=== PATIENT | male | born 1965 | race Caucasian/White ===

== ENCOUNTER 2018-10-13 02:02 | Emergency (ER) | payer MEDICAID ==
[~2018-10-13] VITALS: Ht 193 cm; Wt 160.0 kg
[~2018-10-13 02:02] MED LIST: ACID1TAB7 PO; AMOX1TAB64 PO; ATOR20TA37 PO; DOXY100C2 PO; EFAV1TAB PO; GABA300C10 PO; GLIP5TAB10 PO; HYDR1TAB16 PO; INSU100V12 SC; INSU100V8 SQ; LOPE2CAP PO; LOSA100T7 PO; METF10002 PO; SULF1TAB24 PO; TELM20TA PO
[2018-10-13 02:03] VITALS: BP 143/94
== END 2018-10-13 02:35 | disposition home or self-care (01) ==
LOC: ED 02:10
DX: L02.01 Cutaneous abscess of face (principal); I10 Essential (primary) hypertension; E11.9 Type 2 diabetes mellitus without complications; F17.210 Nicotine dependence, cigarettes, uncomplicated; Z21 Asymptomatic human immunodeficiency virus [HIV] infection status
CPT/HCPCS: 99283

== ENCOUNTER 2018-10-15 10:36 | Inpatient (IN) | payer MEDICAID ==
[~2018-10-15] VITALS: Ht 193 cm; Wt 172.1 kg
--- NOTE | 2018-10-15 10:59 | NUR ---
Patient safe in bed, [facility] at bedside for assessment, patient reports inability to take his pills r/t difficulty swallowing.
--- NOTE | 2018-10-15 11:18 | NUR ---
IV started lab draw and blood cx x1 drawn by this RN, lab at bedside now drawing lactic and 2nd blood cx.
[2018-10-15] MEDS ORDERED: ONDANSETRON 2MG/ML, 2ML ONE (11:25)
[2018-10-15] MEDS ORDERED: MORPHINE SULFATE 4 MG/ML, 1ML ONE (11:26)
[2018-10-15] MEDS ORDERED: ONDANSETRON 2MG/ML, 2ML IVPush ONE (11:30)
[2018-10-15] MEDS ORDERED: MORPHINE SULFATE 4 MG/ML, 1ML IVPush PRN (11:30)
[2018-10-15] MEDS ORDERED: SODIUM CHLORIDE FLUSH 10ML SYR IVF ONE (11:30)
[2018-10-15] MEDS ORDERED: AMPICILLIN/SULBACTAM 3 GM in SODIUM CHLORIDE 0.9% 100 ML IV ONE (11:30)
--- NOTE | 2018-10-15 11:41 | NUR ---
PATIENT MEDICATED PER MAR, CALL LIGHT IN REACH, BED RAILS UP, NO ADDITIONAL NEEDS AT THIS TIME.
[2018-10-15 11:47] LABS: BASOPHILS # (AUTO) 0.04 x10^3/uL (0-0.1); BASOPHILS % (AUTO) 0 % (0-1); EOSINOPHILS # (AUTO) 0.18 x10^3/uL (0-0.4); EOSINOPHILS % (AUTO) 2 % (1-7); LYMPHOCYTES # (AUTO) 1.78 x10^3/uL (1-3.4); LYMPHOCYTES % (AUTO) 15 % (22-44); MD NO; MEAN CORPUSCULAR HEMOGLOBIN 32.9 pg (27.5-34.5); MEAN CORPUSCULAR HGB CONC 34.5 g/dL (33.2-36.2); MEAN CORPUSCULAR VOLUME 95.5 fL (81-97); MEAN PLATELET VOLUME 8.4 fL (7.4-10.4); MONOCYTES # (AUTO) 0.76 x10^3/uL (0.2-0.8); MONOCYTES % (AUTO) 7 % (2-9); NEUTROPHILS # (AUTO) 8.77 x10^3/uL (1.8-6.8); NEUTROPHILS % (AUTO) 76 % (42-75); PLATELET COUNT 242 x10^3/uL (130-400); RED BLOOD COUNT 4.52 x10^6/uL (4.38-5.82); RED CELL DISTRIBUTION WIDTH 13.1 % (9.4-14.8)
[2018-10-15 11:58] LABS: ALBUMIN 3.2 g/dL (3.4-5.0); ANION GAP 8 mmol/L (5-15); CALCIUM 8.7 mg/dL (8.5-10.1); CHLORIDE 104 mmol/L (98-107); CREATININE 1.01 mg/dL (0.7-1.3)
[2018-10-15] MEDS ORDERED: ACET325T21 PO (12:00)
[2018-10-15] MEDS ORDERED: LAMO25TB7 PO (12:00)
[2018-10-15] MEDS ORDERED: PRAZ2CAP2 PO (12:00)
[2018-10-15] MEDS ORDERED: SULF1TAB24 PO (12:00)
[2018-10-15] MEDS ORDERED: CEPH-368 PO (12:00)
[2018-10-15] MEDS ORDERED: RISP2TAB3 PO (12:00)
--- NOTE | 2018-10-15 12:00 | NUR ---
TASK RN: PT RESTING ON GURNEY. NADN. OLIVAREZ.
--- NOTE | 2018-10-15 12:19 | NUR ---
TASK RN: PT TAKEN TO CT IN STABLE CONDITION.
[2018-10-15] MEDS ORDERED: OMNIPAQUE 350 MG/ML, 100ML BOTTLE ONE (12:45)
[2018-10-15] MEDS ORDERED: VANCOMYCIN PER PHARMACY MC ONE (13:00)
[2018-10-15] MEDS ORDERED: VANCOMYCIN 2,400 MG in SODIUM CHLORIDE 0.9% 500 ML IV ONE (13:00)
--- NOTE | 2018-10-15 13:26 | NUR ---
Report to floor RN, all questions answered, Vancomycin not arrived yet from pharmacy, will be sent up to tube [phone] if it arrives. Patient updated of transfer plan, RTG status now.
[2018-10-15 14:00] VITALS: BP 122/79
[2018-10-15] MEDS ORDERED: DOCUSATE 100 MG CAPSULE PO PRN (14:00)
[2018-10-15] MEDS ORDERED: ONDANSETRON 2MG/ML, 2ML IVPush PRN (14:00)
[2018-10-15] MEDS ORDERED: VANCOMYCIN PER PHARMACY MC PRN ×2 (14:00→15:00)
[2018-10-15] MEDS ORDERED: ZOLPIDEM 5MG TABLET PO PRN (14:00)
[2018-10-15] MEDS ORDERED: BISACODYL 10 MG SUPP PR PRN (14:00)
[2018-10-15] MEDS ORDERED: hydrALAzine 20 MG/ML, 1ML IVPush PRN (14:00)
[2018-10-15] MEDS ORDERED: LOPERAMIDE 2 MG CAPSULE PO PRN (14:00)
[2018-10-15] MEDS ORDERED: ONDANSETRON ODT 4 MG PO PRN (14:00)
[2018-10-15] MEDS ORDERED: ACETAMINOPHEN 325 MG TABLET PO PRN (14:00)
[2018-10-15] MEDS: HYDROcodone/APAP 5/325 TABLET PO PRN ×2 (14:51→23:11)
[2018-10-15 14:53] LABS: C-REACTIVE PROTEIN, QUANT 4.9 mg/dL (0.02-0.49); FREE T4 (FREE THYROXINE) 0.92 ng/dL (0.76-1.46); THYROID STIMULATING HORMONE 1.77 mIU/L (0.358-3.740)
[2018-10-15] MEDS: SODIUM CHLORIDE 0.9% 1,000 ML IV SCH (14:54)
[2018-10-15 15:03] LABS: HCT (SEDRATE) 43.2 % (39.2-51.8)
[2018-10-15] MEDS: GABAPENTIN 300 MG CAPSULE PO SCH ×2 (16:24→21:14)
[2018-10-15] MEDS: INSULIN LISPRO 100 UNITS/ML, PEN SQ-INSULIN SCH ×2 (17:50→21:18)
[2018-10-15] MEDS: ENOXAPARIN 40 MG/0.4 ML SQ SCH (19:27)
[2018-10-15] MEDS: AMPICILLIN/SULBACTAM 3 GM in SODIUM CHLORIDE 0.9% 100 ML IV SCH (19:27)
[2018-10-15 19:45] VITALS: BP 122/72
[2018-10-15] MEDS: INSULIN ASPART 70/30, VIAL SQ-INSULIN SCH (21:00)
[2018-10-15] MEDS: metFORMIN 500 MG TABLET PO SCH (21:14)
[2018-10-15] MEDS: LACTOBACILLUS CHEW TABLET PO SCH (21:14)
[2018-10-15] MEDS: EFAVIRENZ/EMTRICITAB/TENOFOVIR 600MG-200MG-300MG TABLET PO SCH (21:14)
[2018-10-15] MEDS: ATORVASTATIN 20 MG TABLET PO SCH (21:15)
[2018-10-15] MEDS: PRAZOSIN 2 MG CAPSULE PO SCH (21:15)
[2018-10-15] MEDS: FAMOTIDINE 20 MG TABLET PO SCH (21:15)
[2018-10-15] MEDS: RISPERIDONE 2 MG TABLET PO SCH (21:15)
[2018-10-16] MEDS: AMPICILLIN/SULBACTAM 3 GM in SODIUM CHLORIDE 0.9% 100 ML IV SCH ×4 (01:59→19:48)
[2018-10-16] MEDS: VANCOMYCIN 2,000 MG in SODIUM CHLORIDE 0.9% 500 ML IV SCH ×2 (03:04→14:49)
[2018-10-16 03:07] VITALS: BP 101/67
[2018-10-16 05:18] LABS: BASOPHILS # (AUTO) 0.06 x10^3/uL (0-0.1); BASOPHILS % (AUTO) 1 % (0-1); EOSINOPHILS % (AUTO) 2 % (1-7); LYMPHOCYTES # (AUTO) 2.15 x10^3/uL (1-3.4); LYMPHOCYTES % (AUTO) 21 % (22-44); MD NO; MEAN CORPUSCULAR HEMOGLOBIN 32.3 pg (27.5-34.5); MEAN CORPUSCULAR HGB CONC 33.9 g/dL (33.2-36.2); MEAN CORPUSCULAR VOLUME 95.3 fL (81-97); MEAN PLATELET VOLUME 8.4 fL (7.4-10.4); MONOCYTES # (AUTO) 0.76 x10^3/uL (0.2-0.8); MONOCYTES % (AUTO) 8 % (2-9); NEUTROPHILS # (AUTO) 7.02 x10^3/uL (1.8-6.8); NEUTROPHILS % (AUTO) 69 % (42-75); PLATELET COUNT 202 x10^3/uL (130-400); RED BLOOD COUNT 4.19 x10^6/uL (4.38-5.82); RED CELL DISTRIBUTION WIDTH 12.9 % (9.4-14.8)
[2018-10-16 05:22] LABS: ANION GAP 6 mmol/L (5-15); CHLORIDE 104 mmol/L (98-107)
[2018-10-16 05:27] LABS: CHOL/HDL RATIO 3.1; CHOLESTEROL, TOTAL 144 mg/dL (140-239); CREATININE 0.86 mg/dL (0.7-1.3); HDL CHOL % 33 % (26-37); HDL CHOLESTEROL (DIRECT) 47 mg/dL (40-60); LDL CHOLESTEROL,CALCULATED 61 mg/dL (54-169); LDL/HDL RATIO 1.3 (0.5-3.0); TRIGLYCERIDES 180 mg/dL (50-200); VLDL CHOLESTEROL 36 mg/dL (0-25)
[2018-10-16] MEDS: HYDROcodone/APAP 5/325 TABLET PO PRN ×4 (06:42→21:33)
[2018-10-16 06:50] VITALS: BP 119/73
[2018-10-16] MEDS: INSULIN LISPRO 100 UNITS/ML, PEN SQ-INSULIN SCH ×4 (08:02→20:54)
[2018-10-16] MEDS: FAMOTIDINE 20 MG TABLET PO SCH ×2 (08:03→20:57)
[2018-10-16] MEDS: LACTOBACILLUS CHEW TABLET PO SCH ×2 (08:03→20:57)
[2018-10-16] MEDS: LAMOTRIGINE 25 MG TABLET PO SCH (08:03)
[2018-10-16] MEDS: GABAPENTIN 300 MG CAPSULE PO SCH ×3 (08:03→20:58)
[2018-10-16] MEDS: metFORMIN 500 MG TABLET PO SCH ×2 (08:03→20:58)
[2018-10-16] MEDS: LOSARTAN 50MG TABLET PO SCH (08:03)
[2018-10-16] MEDS: EFAVIRENZ/EMTRICITAB/TENOFOVIR 600MG-200MG-300MG TABLET PO SCH ×2 (08:30→09:00)
[2018-10-16] MEDS: INSULIN ASPART 70/30, VIAL SQ-INSULIN SCH ×2 (09:00→20:56)
[2018-10-16 13:12] VITALS: BP 102/65
[2018-10-16 19:25] VITALS: BP 114/74
[2018-10-16] MEDS: ENOXAPARIN 40 MG/0.4 ML SQ SCH (19:31)
[2018-10-16] MEDS: PRAZOSIN 2 MG CAPSULE PO SCH (20:58)
[2018-10-16] MEDS: RISPERIDONE 2 MG TABLET PO SCH (20:58)
[2018-10-16] MEDS: ATORVASTATIN 20 MG TABLET PO SCH (20:58)
[2018-10-17] MEDS: AMPICILLIN/SULBACTAM 3 GM in SODIUM CHLORIDE 0.9% 100 ML IV SCH ×4 (00:56→19:27)
[2018-10-17] MEDS: SODIUM CHLORIDE 0.9% 1,000 ML IV SCH ×2 (00:57→21:24)
[2018-10-17 01:02] VITALS: BP 111/73
[2018-10-17 04:32] LABS: BASOPHILS # (AUTO) 0.04 x10^3/uL (0-0.1); BASOPHILS % (AUTO) 0 % (0-1); EOSINOPHILS # (AUTO) 0.24 x10^3/uL (0-0.4); EOSINOPHILS % (AUTO) 3 % (1-7); LYMPHOCYTES # (AUTO) 2.08 x10^3/uL (1-3.4); LYMPHOCYTES % (AUTO) 22 % (22-44); MD NO; MEAN CORPUSCULAR HEMOGLOBIN 32.8 pg (27.5-34.5); MEAN CORPUSCULAR HGB CONC 34.5 g/dL (33.2-36.2); MEAN CORPUSCULAR VOLUME 95.3 fL (81-97); MEAN PLATELET VOLUME 7.7 fL (7.4-10.4); MONOCYTES # (AUTO) 0.78 x10^3/uL (0.2-0.8); MONOCYTES % (AUTO) 8 % (2-9); NEUTROPHILS # (AUTO) 6.37 x10^3/uL (1.8-6.8); NEUTROPHILS % (AUTO) 67 % (42-75); PLATELET COUNT 228 x10^3/uL (130-400); RED BLOOD COUNT 4.28 x10^6/uL (4.38-5.82); RED CELL DISTRIBUTION WIDTH 12.6 % (9.4-14.8)
[2018-10-17 04:47] LABS: ANION GAP 5 mmol/L (5-15); CALCIUM 8.6 mg/dL (8.5-10.1); CHLORIDE 106 mmol/L (98-107)
[2018-10-17 04:50] LABS: CREATININE 0.98 mg/dL (0.7-1.3)
[2018-10-17 06:22] VITALS: BP 123/77
[2018-10-17] MEDS: INSULIN LISPRO 100 UNITS/ML, PEN SQ-INSULIN SCH ×4 (07:00→20:48)
[2018-10-17] MEDS: INSULIN ASPART 70/30, VIAL SQ-INSULIN SCH ×2 (09:00→21:00)
[2018-10-17] MEDS: EFAVIRENZ/EMTRICITAB/TENOFOVIR 600MG-200MG-300MG TABLET PO SCH (09:00)
[2018-10-17] MEDS: metFORMIN 500 MG TABLET PO SCH ×2 (10:13→21:14)
[2018-10-17] MEDS: FAMOTIDINE 20 MG TABLET PO SCH ×2 (10:13→21:14)
[2018-10-17] MEDS: LOSARTAN 50MG TABLET PO SCH (10:13)
[2018-10-17] MEDS: LAMOTRIGINE 25 MG TABLET PO SCH (10:13)
[2018-10-17] MEDS: GABAPENTIN 300 MG CAPSULE PO SCH ×3 (10:13→21:14)
[2018-10-17] MEDS: LACTOBACILLUS CHEW TABLET PO SCH ×2 (10:13→21:14)
[2018-10-17] MEDS: HYDROcodone/APAP 5/325 TABLET PO PRN ×3 (10:23→21:23)
[2018-10-17 13:33] VITALS: BP 114/71
[2018-10-17 18:59] VITALS: BP 125/79
[2018-10-17] MEDS: ENOXAPARIN 40 MG/0.4 ML SQ SCH (20:33)
[2018-10-17] MEDS: PRAZOSIN 2 MG CAPSULE PO SCH (21:14)
[2018-10-17] MEDS: ATORVASTATIN 20 MG TABLET PO SCH (21:14)
[2018-10-17] MEDS: RISPERIDONE 2 MG TABLET PO SCH (21:15)
[2018-10-18 00:57] VITALS: BP 101/69
[2018-10-18] MEDS: AMPICILLIN/SULBACTAM 3 GM in SODIUM CHLORIDE 0.9% 100 ML IV SCH ×4 (01:40→22:59)
[2018-10-18] MEDS: SODIUM CHLORIDE 0.9% 1,000 ML IV SCH (05:48)
[2018-10-18] MEDS: INSULIN LISPRO 100 UNITS/ML, PEN SQ-INSULIN SCH ×4 (07:00→20:07)
[2018-10-18 07:20] VITALS: BP 128/82
[2018-10-18] MEDS: EFAVIRENZ/EMTRICITAB/TENOFOVIR 600MG-200MG-300MG TABLET PO SCH (09:00)
[2018-10-18] MEDS: INSULIN ASPART 70/30, VIAL SQ-INSULIN SCH ×2 (09:00→20:09)
[2018-10-18] MEDS: LACTOBACILLUS CHEW TABLET PO SCH ×2 (09:27→20:11)
[2018-10-18] MEDS: LAMOTRIGINE 25 MG TABLET PO SCH (09:28)
[2018-10-18] MEDS: FAMOTIDINE 20 MG TABLET PO SCH ×2 (09:28→20:12)
[2018-10-18] MEDS: GABAPENTIN 300 MG CAPSULE PO SCH ×3 (09:28→20:11)
[2018-10-18] MEDS: LOSARTAN 50MG TABLET PO SCH (09:28)
[2018-10-18] MEDS: metFORMIN 500 MG TABLET PO SCH ×2 (09:28→20:11)
[2018-10-18] MEDS: HYDROcodone/APAP 5/325 TABLET PO PRN ×3 (09:33→22:17)
[2018-10-18 13:38] VITALS: BP 118/72
[2018-10-18 19:15] VITALS: BP 127/73
[2018-10-18] MEDS: ENOXAPARIN 40 MG/0.4 ML SQ SCH (20:08)
[2018-10-18] MEDS: ATORVASTATIN 20 MG TABLET PO SCH (20:11)
[2018-10-18] MEDS: RISPERIDONE 2 MG TABLET PO SCH (20:12)
[2018-10-18] MEDS: PRAZOSIN 2 MG CAPSULE PO SCH (20:12)
[2018-10-18 20:52] VITALS: BP 123/73
[2018-10-19 01:45] VITALS: BP 114/84
[2018-10-19] MEDS: AMPICILLIN/SULBACTAM 3 GM in SODIUM CHLORIDE 0.9% 100 ML IV SCH ×3 (05:15→20:20)
[2018-10-19] MEDS: INSULIN LISPRO 100 UNITS/ML, PEN SQ-INSULIN SCH ×4 (07:00→21:52)
[2018-10-19 08:03] VITALS: BP 138/77
[2018-10-19] MEDS: EFAVIRENZ/EMTRICITAB/TENOFOVIR 600MG-200MG-300MG TABLET PO SCH (08:12)
[2018-10-19] MEDS: LAMOTRIGINE 25 MG TABLET PO SCH (08:12)
[2018-10-19] MEDS: GABAPENTIN 300 MG CAPSULE PO SCH ×3 (08:13→21:14)
[2018-10-19] MEDS: LACTOBACILLUS CHEW TABLET PO SCH ×2 (08:13→20:53)
[2018-10-19] MEDS: metFORMIN 500 MG TABLET PO SCH ×2 (08:13→20:52)
[2018-10-19] MEDS: INSULIN ASPART 70/30, VIAL SQ-INSULIN SCH ×2 (08:14→21:00)
[2018-10-19] MEDS: HYDROcodone/APAP 5/325 TABLET PO PRN ×3 (08:14→22:56)
[2018-10-19] MEDS: LOSARTAN 50MG TABLET PO SCH (08:14)
[2018-10-19] MEDS: FAMOTIDINE 20 MG TABLET PO SCH (08:14)
[2018-10-19] MEDS: SODIUM CHLORIDE 0.9% 1,000 ML IV SCH (12:30)
[2018-10-19 12:43] VITALS: BP 118/78
[2018-10-19 18:43] VITALS: BP 111/61
[2018-10-19 19:42] LABS: HEMOGLOBIN A1C 9.1 % (4.2-6.3)
[2018-10-19] MEDS: ENOXAPARIN 40 MG/0.4 ML SQ SCH (20:52)
[2018-10-19] MEDS: PRAZOSIN 2 MG CAPSULE PO SCH (20:53)
[2018-10-19] MEDS: RISPERIDONE 2 MG TABLET PO SCH (20:53)
[2018-10-19] MEDS: ATORVASTATIN 20 MG TABLET PO SCH (20:53)
[2018-10-20 01:23] VITALS: BP 122/64
[2018-10-20] MEDS: AMPICILLIN/SULBACTAM 3 GM in SODIUM CHLORIDE 0.9% 100 ML IV SCH ×3 (02:28→14:27)
[2018-10-20 05:45] LABS: BASOPHILS # (AUTO) 0.06 x10^3/uL (0-0.1); BASOPHILS % (AUTO) 1 % (0-1); EOSINOPHILS # (AUTO) 0.22 x10^3/uL (0-0.4); EOSINOPHILS % (AUTO) 3 % (1-7); LYMPHOCYTES # (AUTO) 2.37 x10^3/uL (1-3.4); LYMPHOCYTES % (AUTO) 32 % (22-44); MD NO; MEAN CORPUSCULAR HEMOGLOBIN 33.2 pg (27.5-34.5); MEAN CORPUSCULAR HGB CONC 34.5 g/dL (33.2-36.2); MEAN CORPUSCULAR VOLUME 96.3 fL (81-97); MONOCYTES # (AUTO) 0.73 x10^3/uL (0.2-0.8); MONOCYTES % (AUTO) 10 % (2-9); NEUTROPHILS # (AUTO) 3.99 x10^3/uL (1.8-6.8); NEUTROPHILS % (AUTO) 54 % (42-75); PLATELET COUNT 265 x10^3/uL (130-400); RED BLOOD COUNT 4.28 x10^6/uL (4.38-5.82); RED CELL DISTRIBUTION WIDTH 12.8 % (9.4-14.8)
[2018-10-20 05:53] LABS: ALANINE AMINOTRANSFERASE 49 U/L (12-78); ALBUMIN 2.8 g/dL (3.4-5.0); ANION GAP 6 mmol/L (5-15); CALCIUM 8.5 mg/dL (8.5-10.1); CHLORIDE 107 mmol/L (98-107); CREATININE 1.01 mg/dL (0.7-1.3)
[2018-10-20 05:55] LABS: ALKALINE PHOSPHATASE 70 U/L (45-117); BILIRUBIN,TOTAL 0.2 mg/dL (0.2-1.0); TOTAL PROTEIN 6.3 g/dL (6.4-8.2)
[2018-10-20] MEDS: INSULIN LISPRO 100 UNITS/ML, PEN SQ-INSULIN SCH ×2 (07:00→11:00)
[2018-10-20 07:28] VITALS: BP 116/81
[2018-10-20] MEDS: metFORMIN 500 MG TABLET PO SCH (08:25)
[2018-10-20] MEDS: LOSARTAN 50MG TABLET PO SCH (08:25)
[2018-10-20] MEDS: EFAVIRENZ/EMTRICITAB/TENOFOVIR 600MG-200MG-300MG TABLET PO SCH (08:26)
[2018-10-20] MEDS: LAMOTRIGINE 25 MG TABLET PO SCH (08:26)
[2018-10-20] MEDS: GABAPENTIN 300 MG CAPSULE PO SCH (08:26)
[2018-10-20] MEDS: LACTOBACILLUS CHEW TABLET PO SCH (08:26)
[2018-10-20] MEDS: INSULIN ASPART 70/30, VIAL SQ-INSULIN SCH (08:29)
[2018-10-20] MEDS ORDERED: AMOX1TAB64 PO (10:07)
== END 2018-10-20 16:26 | disposition home or self-care (01) | DRG 872 ==
LOC: ED 10:59 → EDIP 12:57 → 3NE 13:47
PROVIDERS: ADMIT Internal Medicine; ATTEND Internal Medicine
DX: A41.9 Sepsis, unspecified organism (principal); L02.01 Cutaneous abscess of face; L03.211 Cellulitis of face; Z68.42 Body mass index [BMI] 45.0-49.9, adult; D63.8 Anemia in other chronic diseases classified elsewhere; E10.65 Type 1 diabetes mellitus with hyperglycemia; E66.9 Obesity, unspecified; E78.5 Hyperlipidemia, unspecified; F39 Unspecified mood [affective] disorder; I10 Essential (primary) hypertension; K04.7 Periapical abscess without sinus; Z79.4 Long term (current) use of insulin; Z83.3 Family history of diabetes mellitus; F51.5 Nightmare disorder; Z88.8 Allergy status to other drugs, medicaments and biological substances
CPT/HCPCS: 36415; 70100; 70487; 80048; 80053; 80061; 82040; 82962; 83036; 83605; 83735; 84100; 84439; 84443; 85025; 85651; 86140; 87040; 96374; 96375; 99285; G0378; J0295; J1650; J2405; J3370; Q9967; J1815; J7030; J7040